=== PATIENT | male | born 1955 | race Caucasian/White ===

== ENCOUNTER 2023-11-01 13:21 | Emergency (ER) | payer OTHER, MEDICARE, BC ==
[2023-11-01 13:15] LABS: HEMATOCRIT 39.1 % (40.0-54.0); HEMOGLOBIN 12.8 g/dL (14.0-18.0); MEAN CORPUSCULAR HGB CONC 32.7 g/dL (33.0-35.0); MEAN CORPUSCULAR VOLUME 94.7 fL (80-100); PLATELET COUNT,PLT 278 10^3/uL (150-450); RED BLOOD CELL COUNT 4.13 10^6/uL (4.6-6.2); WHITE BLOOD CELL COUNT,WBC 16.9 10^3/uL (5.0-10.0)
[2023-11-01 13:27] LABS: BASOPHILS PERCENT AUTO 0.2 % (0.0-1.0); EOSINOPHILS PERCENT AUTO 1.7 % (1.0-3.0); LYMPHOCYTES PERCENT AUTO 14.9 % (20.5-50.1); MONOCYTES PERCENT AUTO 6.5 % (2-8); NEUTROPHILS PERCENT AUTO 76.7 % (42.2-75.2)
[2023-11-01 13:32] LABS: PROTHROMBIN TIME 9.9 SEC (9.0-12.0)
[2023-11-01 13:36] LABS: A/G RATIO 0.9; ALANINE AMINOTRANSFERASE,ALT 19 U/L (16-63); ALBUMIN 3.4 g/dL (3.4-5.0); ALKALINE PHOSPHATASE 82 U/L (46-116); ANION GAP 9.3 mEq/L (7-13); ASPARTATE AMNIOTRANSFERASE,AST 24 U/L (15-37); BILIRUBIN TOTAL 0.3 mg/dL (0.2-1.0); BLOOD UREA NITROGEN,BUN 14 mg/dL (7-18); BUN/CREATININE RATIO 12.5 (No establ ref range); CALCIUM 8.8 mg/dL (8.5-10.1); CARBON DIOXIDE,CO2 27 mmol/L (21-32); CHLORIDE,CL 106 mmol/L (98-107); CREATININE 1.12 mg/dL (0.70-1.30); ESTIMATED GFR 72 mL/min (>=60); GLUCOSE RANDOM 124 mg/dL (70-99); POTASSIUM,K 3.3 mmol/L (3.5-5.1); SODIUM,NA 139 mmol/L (136-145)
[2023-11-01 13:42] LABS: BAND PERCENT MAN 1 %; EOSINOPHILS PERCENT MAN 1 % (1-3); LYMPHOCYTES PERCENT MAN 19 % (20-50); MONOCYTES PERCENT MAN 4 % (2-8); SEG NEUTROPHILS PERCENT MAN 75 % (42-75)
[2023-11-01] MEDS: Iopamidol 612 MG/ML 100 ML Bottle IVPUSH ONE (13:51)
[2023-11-01] MEDS: Diphtheria,Pertussis(Acell),Tetanus Vaccine 0.5 ML Syringe IM ONE (14:09)
[2023-11-01] MEDS: Sodium Chloride 0.9% 1,000 ML IV SCH (14:12)
[2023-11-01] MEDS: Lidocaine 1% 30 ML SDV INJECT ONE (14:30)
[2023-11-01] MEDS ORDERED: HYDROmorphone 2 MG/ML Syringe IVPUSH PRN (15:01)
[2023-11-01] MEDS: Ondansetron 4 MG/2 ML SDV IVPUSH ONE (15:28)
[2023-11-01] MEDS: HYDROmorphone 0.5 MG/0.5 ML Syringe IVPUSH PRN (15:28)
== END 2023-11-01 15:56 | disposition home or self-care (01) ==
LOC: DL.ED 13:21
DX: S42.001A Fracture of unspecified part of right clavicle, initial encounter for closed fracture (principal); S22.41XA Multiple fractures of ribs, right side, initial encounter for closed fracture; S42.101A Fracture of unspecified part of scapula, right shoulder, initial encounter for closed fracture; S09.90XA Unspecified injury of head, initial encounter; Z88.0 Allergy status to penicillin; V89.2XXA Person injured in unspecified motor-vehicle accident, traffic, initial encounter
CPT/HCPCS: 12004; 36415; 70450; 71045; 71260; 72125; 73010; 74177; 80053; 80307; 85025; 85610; 90471; 90715; 96374; 96375; 99284; 99285; J1170; J2405; J7030; Q9967; J3490